=== PATIENT | female | born 1960 | race Caucasian/White ===

== ENCOUNTER → 2016-09-16 | Outpatient (CLI) | payer BC | END | disposition home or self-care (01) | LOC: LAB.O 17:22 | PROVIDERS: ATTEND Nurse Practitioner Family | DX: I10 Essential (primary) hypertension (principal) ==

== ENCOUNTER → 2016-09-17 | Outpatient (CLI) | payer BC | END | disposition home or self-care (01) | LOC: RESP 09:53 | PROVIDERS: ATTEND Nurse Practitioner Family | DX: I51.9 Heart disease, unspecified (principal) ==

== ENCOUNTER 2017-01-01 10:37 | Observation (INO) | payer BC ==
[2017-01-01] MEDS ORDERED: ASPIRIN TABLET 325 MG TAB ONE (10:50)
[2017-01-01] MEDS ORDERED: NITROGLYCERIN 0.4 MG 25 EA TAB SL ONE ×2 (10:50→10:51)
[2017-01-01] MEDS ORDERED: ASPIRIN TABLET 325 MG TAB PO ONE (10:51)
[2017-01-01] MEDS ORDERED: SODIUM CHLORIDE 0.9% (FLUSH) 10 ML SYG IV PRN ×2 (10:51→15:47)
--- NOTE | 2017-01-01 10:51 | ED.PDOC ---
History of Present Illness - General Chief Complaint: Chest Pain/FL Stated Complaint: chest pain Time Seen by Provider: 01/01/17 10:51 Source: patient Exam Limitations: no limitations - History of Present Illness Initial Comments: Tracey Anderson 56 y/o female stated that while walking down the kitchen hallway at work she had sudden onset of chest pain-stating as if somebody kicked her on the chest hten leaned on the wall had also been diaphoretic with tighness on her neck,jaw.and forehead lasting for about 10 minutes Timing/Duration: 1-3 hours Severity/Quality: moderate Location: central Chest Pain Radiation: jaw, neck, other - face Activities at Onset: activity Prior Chest Pain/Cardiac Workup: no prior cardiac workup, angina Improving Factors: rest Worsening Factors: nothing Nitro Today/Relief: no nitro taken today, provided by ED Aspirin Treatment Today: 325 mg x 1, provided by ED Associated Symptoms: shortness of breath - stated has occassional SOB due to asthma Allergies/Adverse Reactions: Allergies Penicillins Allergy (Verified 01/01/17 12:04) Home Medications: Ambulatory Orders Aspirin [Dario Low Dose] 81 mg PO DAILY 01/01/17 Review of Systems - Review of Systems Constitutional: States: no symptoms reported EENTM: States: no symptoms reported Respiratory: States: see HPI, short of breath Cardiology: States: see HPI Gastrointestinal/Abdominal: States: no symptoms reported Genitourinary: States: no symptoms reported Musculoskeletal: States: no symptoms reported Skin: States: no symptoms reported Neurological: States: no symptoms reported Past Medical History (General) - Patient Medical History Hx Hypertension: Yes - took medicine for one week discontinued due to side effects Surgical History: other - tubal ligation - Social History Hx Tobacco Use: No Hx Chewing Tobacco Use: No Hx Physical Abuse: No Hx Emotional Abuse: No Hx Suspected Abuse: No - Activities of Daily Living Patient Lives Alone: No - family Grooming Ability: Independent Eating (Feeding) Ability: Independent Toileting Ability: Independent Family Medical History - Family History Father Family History: Unknown - patient adopted Physical Exam - Physical Exam General Appearance: Alert, Comfortable, No apparent distress Eyes, Ears, Nose, Throat Exam: PERRL/EOMI, normal ENT inspection, TMs normal, pharynx normal Neck: non-tender, full range of motion, supple Respiratory: chest non-tender, lungs clear, normal breath sounds, no respiratory distress Cardiovascular/Chest: normal peripheral pulses, regular rate, rhythm, no edema, no murmur Peripheral Pulses: radial,right: 1+, radial,left: 1+ Gastrointestinal/Abdominal: normal bowel sounds, non tender, soft, no organomegaly Extremity: non-tender, normal inspection, no pedal edema, no calf tenderness Neurologic: alert, normal mood/affect, oriented x 3 Skin Exam: normal color, warm/dry Lymphatic: no adenopathy Progress - Progress Progress: 01/01/17 13:36 Vital Signs - 8 hr 01/01/17 01/01/17 01/01/17 10:58 11:13 11:28 Temperature Pulse Rate [ 85 74 66 Apical] Respiratory 22 22 22 Rate Blood Pressure 137/88 111/75 97/64 [Left Arm] O2 Sat by Pulse 97 97 98 Oximetry 01/01/17 01/01/17 01/01/17 11:48 11:57 12:08 Temperature 98.4 F Pulse Rate [ 69 86 81 Apical] Respiratory 20 22 22 Rate Blood Pressure 109/75 140/91 115/75 [Left Arm] O2 Sat by Pulse 97 100 97 Oximetry Laboratory Tests 01/01/17 01/01/17 01/01/17 11:01 11:01 12:00 WBC 6.8 RBC 4.09 L Hgb 10.6 L Hct 32.9 L MCV 80.5 L MCH 25.9 L MCHC 32.2 L RDW 17.0 H Plt Count 322 MPV 7.6 Absolute Neuts (auto) 5.00 Absolute Lymphs (auto) 1.20 Absolute Monos (auto) 0.50 Absolute Eos (auto) 0.10 Absolute Basos (auto) 0.00 Neutrophils % 72.9 Lymphocytes % 18.0 L Monocytes % 6.9 Eosinophils % 1.5 Basophils % 0.7 PT 13.7 H INR 1.210 PTT (SP) 32.1 D-Dimer, Quantitative < 230 Sodium 139 Potassium 3.8 Chloride 102 Carbon Dioxide 26 Anion Gap 14.8 BUN 12 Creatinine 0.80 BUN/Creatinine Ratio 15.0 Random Glucose 96 Serum Osmolality 277.2 Calcium 8.9 Magnesium 1.9 Total Bilirubin 0.5 Direct Bilirubin < 0.1 Indirect Bilirubin 0.4 AST 14 ALT 9 L Alkaline Phosphatase 74 Creatine Kinase 47 CK-MB (CK-2) 0.8 CK-MB (CK-2) % Not Reportable Troponin I < 0.02 < 0.02 B-Natriuretic Peptide 46.2 Serum Total Protein 6.8 Albumin 3.5 - EKG/XRAY/CT EKG: Sinus, nonspecific ST T wave Chg, Unchanged from - 09/17/2016 Comments: heart rate 76 occ.pac's XRAY: chest - no acute changes Departure - Departure Clinical Impression: Chest pain Qualifiers: Chest pain type: unspecified Qualified Code(s): R07.9 - Chest pain, unspecified Time of Disposition: 16:04 Disposition: Admit Patient Home Medications: Ambulatory Orders Aspirin [Dario Low Dose] 81 mg PO DAILY 01/01/17 Decision To Admit - Decistion To Admit Decision to Admit Reason: Admit from ER Decision to Admit Date: 01/01/17 - D/W Luis Alberto Villarreal-ANP/Hospitalist Decision to Admit Time: 16:04
--- NOTE | 2017-01-01 13:05 | RAD ---
EXAM: Frontal chest X-ray obtained. CLINICAL INDICATION: pain COMPARISON: None available at the time of dictation FINDINGS: There is no focal airspace consolidation, pleural effusion or pneumothorax. The cardiomediastinal silhouette and pulmonary vasculature appear within normal limits, given the technique. There are mild hypertrophic degenerative changes of the spine. Visualized osseous structures appear intact and are otherwise grossly unremarkable, given the nondedicated imaging. IMPRESSION: No radiographic evidence for acute cardiopulmonary disease process. Electronically signed by: Mp Reese MD 01/01/2017 1:04 PM CDT Workstation: [id number]
[2017-01-01] MEDS ORDERED: ACETAMINOPHEN 325 MG TAB PO PRN (15:47)
[2017-01-01] MEDS ORDERED: NITROGLYCERIN 0.4 MG 25 EA TAB SL PRN (15:47)
[2017-01-01] MEDS ORDERED: MORPHINE SULFATE INJ 10 MG/ML VIAL IV PRN (15:47)
[2017-01-01] MEDS ORDERED: NITROGLYCERIN 0.2 MG/HR PATCH TD ONE (15:51)
--- NOTE | 2017-01-01 15:58 | HP ---
SUPERVISING PHYSICIAN: Christian Rodriguez M.D. CHIEF COMPLAINT: Chest pain. HISTORY OF PRESENT ILLNESS: Ms. Anderson is a 56 year-old female patient that presented to the Emergency Department today after she started experiencing chest pains this morning. 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 She notes that she sees Lance Kennedy on a normal basis and for hypertension in the past , but was recently started on apparently Hydrochlorothiazide, Lisinopril, Wellbutrin and due to the side effects of the medication she stopped taking the medication. She notes that her blood pressure has been high with blood pressure this morning at home being 151/101. Initial workup in the Emergency Room showed that she had a white count of 6.8 and was mildly anemic with a hypochromic microcytic presentation with hemoglobin 10.6, hematocrit 32.9 and differential within normal limits. Her coagulation studies showed to be within normal limits as well as D-dimer was less than 230. Chemistries showed all to be within normal limits. Electrolytes, liver function as well as initial sets of cardiac enzymes which showed less than 0.02 on troponin with BNP of 46.6. Dr. Pierce, E. R. physician, requested that the patient be admitted to the hospital or be placed in observation for continuation of treatment with concerns for the chest pains and developing an acute coronary event secondary to ischemic changes. He noted that her initial EKG in the Emergency Department showed to be without any ST changes and was no changes compared to previous EKG in August of the same year. He did repeat cardiac enzymes at 3 hours which showed a troponin to be less than 0.02. In the Emergency Department, she was given an aspirin and a single Nitro that did resolve her pain. The patient now is without any pain and is going to be placed in Observation for continuation of treatment and further cardiac evaluation with repeat cardiac enzymes and close cardiac telemetry. PAST MEDICAL HISTORY: 1. Hypertension. 2. Chronic obstructive pulmonary disease. 3. Chronic tobacco abuse. PAST SURGICAL HISTORY: 1. Tubal ligation in 1980. HOME MEDICATIONS: Currently on no chronic medications. Has previously been this year on: 1. Wellbutrin for smoking cessation. 2. Hydrochlorothiazide/Lisinopril combination. 3. Xanax, but having stopped all medications secondary to side effects. ALLERGIES: PENICILLIN. FAMILY HISTORY: History of lung cancer in her mother as well as father had cirrhosis. SOCIAL HISTORY: The patient lives at [facility] at . 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 She is . She does note that she smokes approximately a pack and a half of cigarettes daily but has been up to 2 packs in the last year and has been smoking for well over 40 years. She denies any alcohol use but notes that she does like to smoke marijuana at occasional times. REVIEW OF SYSTEMS: CONSTITUTIONAL: Denies any fevers, chills, weight gain or weight loss. HEENT: Denies any headaches, vision changes, nasal congestion. RESPIRATORY: Does note that she has some shortness of breath at time and had some shortness of breath today associated with her chest pain as noted in the History of Present Illness. CARDIOVASCULAR: As noted in the History of Present Illness. GASTROINTESTINAL: No nausea, vomiting, bowel habit changes or constipation. GENITOURINARY: Denies any dysuria, hematuria or other urinary symptoms. NEUROLOGIC: Denies any syncopal episodes, near syncopal episodes, dizziness, headaches, vision changes or any other neurological symptoms. PHYSICAL EXAMINATION: VITAL SIGNS: Blood pressure initially in the Emergency Department on admission showed blood pressure 137/88 with pulse 85, satting 97% with respirations 22. Admission vital signs to the Medical/Surgical floor, blood pressure 127/81, heart rate 73, satting 98% on room air, respirations 20. Admission weight was 75.3 kg. GENERAL: On admission to the E. R. showed the patient to be without any discomfort or acute distress. She appears to be well nourished and well hydrated and is alert and oriented. HEENT: Tympanic membranes are clear bilaterally. Oropharynx is pink and moist without any lesions. NECK: Supple, non-tender with full range of motion. No noted jugular venous distention. CHEST: Lungs were clear to auscultation bilaterally with no obvious rhonchi, wheezing or rales. CARDIOVASCULAR: Regular rate and rhythm without appreciable murmurs, gallops, or rubs. ABDOMEN: Soft, non-tender. Positive bowel sounds. EXTREMITIES: No clubbing, cyanosis or edema. NEUROLOGIC: She is alert and oriented times three. Cranial nerves II-XII are grossly intact. Facial features were symmetrical. Extraocular movements are within normal limits. There was no notable nystagmus. LABORATORY: CBC showed white count 6.8, and had mild anemia with a 10.6 hemoglobin, hematocrit 32.9 with RBC indices indicating a microcytic hypochromic presentation. Platelet count was normal at 322,000. Differential showed to be without a shift. Coagulation studies showed just a slightly elevated PT of 13.7 with a normal INR, PTT was 32.1. D-dimer was within normal limits at less than 230. Chemistries showed to be totally within normal limits with potassium 3.8. Liver functions showed to be normal. Initial set of cardiac enzymes on admission showed troponin less than 0.02 and at 3 hours troponin remained within normal limits at less than 0.02. Urinalysis on admission to the Medical/Surgical floor showed 15 ketones, moderate amount of blood with small amount of bilirubin and tract leukocyte esterase with 5 to 10 RBCs on microscopic, but no WBCs or bacteria were noted. RADIOLOGY: Chest x-ray in the Emergency Department single view per radiology interpretation showed no radiographic evidence of acute cardiopulmonary disease process. ASSESSMENT: 1. Chest pain requiring admission to rule out acute ischemic event with the patient being pain free on admission with initial cardiac enzymes showing to be within normal limits and no acute changes noted on EKG. 2. Chronic tobacco abuse. 3. Chronic obstructive pulmonary disease in a chronic smoker without evidence of exacerbation. 4. Hypertension currently not being treated. 5. History of illicit drug use to include marijuana. PLAN: The patient was placed in Observation today for close telemetry monitoring and repeat cardiac enzymes at 6 hours and again in the morning. She will be started on a Nitro patch at 0.2 mg per hour. Will plan to also do a lipid panel in the morning. She will be on a cardiac diet. She was started on Lovenox 1 mg per kg until completely ruled out given her symptomology prior to admission and significant history for tobacco abuse and hypertension. Anticipate length of stay to be 1 to 2 days with possible discharge tomorrow. Again, should she show any changes in her EKG or elevation of her cardiac enzymes, will consult Cardiology and make plans for transfer for further evaluation. Until discharge, will continue to monitor and treat appropriately. Once discharged, the patient will need to closely followup with her primary care physician, Lance Kennedy, Nurse Practitioner, as well as be set up to see Cardiology for having a stress test to further rule out any other coronary etiology for current symptoms. #[id number] ANGELA
[2017-01-01] MEDS ORDERED: IV SET AND CAP CHANGE INJ INJ SCH (16:00)
[2017-01-01] MEDS: ENOXAPARIN SODIUM 80 MG/0.8 ML SYG SUBCU SCH (16:22)
[2017-01-01] MEDS: SODIUM CHLORIDE 0.9% (FLUSH) 10 ML SYG IV SCH (20:50)
[2017-01-02] MEDS ORDERED: REMOVE OLD PATCH TOP ONE (04:00)
[2017-01-02] MEDS: ENOXAPARIN SODIUM 80 MG/0.8 ML SYG SUBCU SCH (04:15)
[2017-01-02 06:14] VITALS: BP 111/72; TEMP 98.2; O2SAT 95
[2017-01-02] MEDS ORDERED: ASPIRIN TABLET 325 MG TAB ONE (07:14)
[2017-01-02] MEDS ORDERED: ASPIRIN TABLET 325 MG TAB PO SCH (09:00)
[2017-01-02] MEDS: SODIUM CHLORIDE 0.9% (FLUSH) 10 ML SYG IV SCH (09:38)
== END 2017-01-02 10:54 | disposition home or self-care (01) ==
LOC: ER 10:37 → MS 15:53
PROVIDERS: ADMIT Nurse Practitioner Family; ATTEND Nurse Practitioner Family
DX: R07.89 Other chest pain (principal); F17.210 Nicotine dependence, cigarettes, uncomplicated; J44.9 Chronic obstructive pulmonary disease, unspecified; I10 Essential (primary) hypertension; F12.21 Cannabis dependence, in remission; D50.9 Iron deficiency anemia, unspecified; Z98.51 Tubal ligation status; Z88.0 Allergy status to penicillin; Z80.1 Family history of malignant neoplasm of trachea, bronchus and lung; Z84.89 Family history of other specified conditions
CPT/HCPCS: 36415 ×6; 71010; 80048; 80053; 80061; 80076; 81001; 82550 ×4; 82553 ×4; 83880; 84484 ×5; 85025 ×2; 85379; 85610; 85730; 93005 ×3; 94760; 96372 ×2; 99284; 99406; G0378; J1650 ×2

== ENCOUNTER → 2017-02-11 | Outpatient (CLI) | payer BC | LOC: LAB.O 16:14 | PROVIDERS: ATTEND Nurse Practitioner Family | DX: R10.84 Generalized abdominal pain (principal); R19.7 Diarrhea, unspecified ==

== ENCOUNTER → 2017-02-18 | Outpatient (CLI) | payer BC ==
--- NOTE | 2017-02-19 08:42 | CT ---
PROCEDURE: Abdomen/Pelvis w/Contrast HISTORY: Abdominal pain Indication: Same as above Comparison: None . Technique: CT of the abdomen and pelvis was done with intravenous contrast. Images were obtained from the lung base to the level of the pubic symphysis in axial plane, followed by orthogonal sagittal and coronal reconstruction. Oral contrast was not given for the study. The patient was injected with radiographic contrast intravenously, without any documented immediate adverse reactions. This exam was performed according to our departmental dose-optimization program, which includes automated exposure control, adjustment of the mA and/or KV according to the patient's size and/or use of iterative reconstruction technique. FINDINGS: Images through the lung bases do not show any focal infiltrates or pleural effusions. Subcentimeter benign calcified granuloma seen in the medial right middle lobe of the lung. There is large bowel diverticulosis. There is segmental thickening of the wall of the proximal large bowel from the level of the ascending colon to the level of the hepatic flexure of the large bowel, with surrounding parenchymal stranding. This could be due to infectious or inflammatory segmental colitis. There is no large bowel obstruction The liver, gallbladder, pancreas, spleen and the bilateral adrenal glands appear unremarkable. The bilateral kidneys enhance with contrast in a normal fashion. The urinary bladder is unremarkable . The bilateral ureters and the bilateral periureteral soft tissues and fat planes are unremarkable. The small bowel appears unremarkable, without any evidence of small bowel obstruction or bowel wall thickening. The ileocecal junction appears unremarkable. The appendix is not visualized The splenic and portal veins are of normal caliber, without any filling defects. There is no pathological lymphadenopathy in the retroperitoneum or in the pelvic region. There is no evidence of free fluid or free air in the abdomen or the pelvic region. There is no clinically significant abdominal aortic aneurysm. There is no clinically significant inguinal or ventral hernia. An anteverted uterus is noted The visualized lumbar spine is unremarkable . The paravertebral soft tissues are unremarkable. The remainder of the pelvic structures are unremarkable. IMPRESSION: There is large bowel diverticulosis. There is segmental thickening of the wall of the proximal large bowel from the level of the ascending colon to the level of the hepatic flexure of the large bowel, with surrounding parenchymal stranding. This could be due to infectious or inflammatory segmental colitis. There is no large bowel obstruction Electronically signed by: Soren Taylor MD 02/19/2017 8:41 AM CDT Workstation: [id number]
== END | disposition home or self-care (01) ==
LOC: CT 09:36
PROVIDERS: ATTEND Nurse Practitioner Family
DX: R10.84 Generalized abdominal pain (principal)

== ENCOUNTER 2017-03-11 14:19 | Outpatient (CLI) | payer BC ==
[2017-03-11] MEDS ORDERED: SODIUM CHLORIDE 0.9% 1000ML 1,000 ML IVS ONE (14:42)
[2017-03-11 15:34] VITALS: BP 117/78; TEMP 98.1; O2SAT 99
== END 2017-03-11 15:34 | disposition home or self-care (01) ==
LOC: TXRM 14:19
PROVIDERS: ATTEND Nurse Practitioner Family
DX: E86.0 Dehydration (principal)
CPT/HCPCS: 36415; 80053; 85025; 96360; G0463

== ENCOUNTER 2017-03-20 14:30 | Emergency (ER) | payer BC ==
[2017-03-20 14:47] VITALS: TEMP 97.1
[2017-03-20] MEDS ORDERED: SUCRALFATE 1 GM/10 ML 1 GM UD PO ONE (15:00)
[2017-03-20] MEDS ORDERED: SODIUM CHLORIDE 0.9% 1000ML 1,000 ML IVS ONE (15:00)
[2017-03-20] MEDS ORDERED: ALUMINUM & MAGNESIUM HYDROXIDE 30 ML UD PO ONE (15:00)
[2017-03-20] MEDS ORDERED: ONDANSETRON ODT 8 MG TAB SL ONE (15:00)
--- NOTE | 2017-03-20 15:27 | RAD ---
PROCEDURE: Abdomen Series Clinical History: nv/d Indication: Same as above Comparison: CT of the abdomen and pelvis done on 02/18/2017 Technique: Two views of the abdomen and pelvis and 1.0 view of the chest were done. Findings: There is no gross evidence of free air in the abdomen or the pelvis . The small and large bowel gas pattern does not show any evidence of obstruction, ileus or bowel wall thickening. There is no visualization of radiopaque calculi in the outline of the urinary tract. There is no significant constipation There are no discrete airspace infiltrates, pneumothoraces or pleural effusions Cardiomediastinal silhouette is unremarkable. Impression: There are no acute or significant findings in the chest, abdomen and pelvis Location of Interpretation: [id number] Electronically signed by: Soren Taylor MD 03/20/2017 3:26 PM CDT Workstation: [id number]
[2017-03-20] MEDS ORDERED: PANTOPRAZOLE INJECTION 40 MG in SODIUM CHLORIDE 0.9% 100ML 100 ML IVPB ONE (15:43)
[2017-03-20] MEDS ORDERED: predniSONE 20 MG TAB PO ONE (15:44)
[2017-03-20] MEDS ORDERED: PANTOPRAZOLE SODIUM IV 40 MG VIAL ONE (15:45)
[2017-03-20] MEDS ORDERED: FLUCONAZOLE 100 MG TAB PO ONE (15:45)
[2017-03-20] MEDS ORDERED: SODIUM CHLORIDE 0.9% 100ML 100 ML IVPB ONE (15:46)
[2017-03-20 16:21] VITALS: O2SAT 98
[2017-03-20] MEDS ORDERED: KETOROLAC TROMETHAMINE INJ 30 MG/ML VIAL IM ONE (16:58)
[2017-03-20] MEDS ORDERED: HYDROcodone 7.5MG/APAP 325MG 1 EA TAB PO ONE (16:59)
[2017-03-20] MEDS ORDERED: PROMETHAZINE HCL 25 MG TAB PO ONE (16:59)
[2017-03-20] MEDS ORDERED: AZITHROMYCIN 250 MG TAB PO ONE (17:00)
--- NOTE | 2017-03-20 17:02 | ED.PDOC ---
History of Present Illness - General Chief Complaint: Abdominal Pain Stated Complaint: abdominal pain,diarrhea Time Seen by Provider: 03/20/17 14:46 Source: patient Exam Limitations: no limitations - History of Present Illness Initial Comments: the patient is a 56-year-old female presenting to the emergency room secondary to persistent abdominal pain. The patient reports that she's had abdominal pain for the last 3-4 months. She actually had a CT scan done last month showing an descending colitis. She had been on metronidazole and Flagyl for a period of a couple of weeks after that. She reports having frequent diarrhea as well as intermittent nausea and vomiting. She has Phenergan for as needed use. She does not have any stomach medications otherwise. She tested negative for C. difficile several weeks ago. No blood in the stools. No blood in the vomitus. Timing/Duration: unsure Severity: moderate Improving Factors: nothing Worsening Factors: nothing Associated Symptoms: malaise, nausea/vomiting Allergies/Adverse Reactions: Allergies Penicillins Allergy (Verified 01/01/17 12:04) Home Medications: Ambulatory Orders Metoprolol Tartrate 25 mg PO BID #30 tab 01/02/17 Ferrous Sulfate [Feosol Tab] 325 mg PO TID 03/20/17 Omeprazole 20 mg PO DAILY 03/20/17 Promethazine HCl 25 mg PO PRN 03/20/17 Review of Systems - Review of Systems Constitutional: States: malaise EENTM: States: no symptoms reported Respiratory: States: no symptoms reported Cardiology: States: no symptoms reported Gastrointestinal/Abdominal: States: abdominal pain, diarrhea, nausea, vomiting Genitourinary: States: no symptoms reported Musculoskeletal: States: no symptoms reported Skin: States: no symptoms reported Neurological: States: no symptoms reported Endocrine: States: no symptoms reported All other Systems: No Change from Baseline Past Medical History (General) - Patient Medical History Hx Seizures: No Hx Stroke: No Hx Asthma: Yes Hx of COPD: Yes Hx Congestive Heart Failure: No Hx Pacemaker: No Hx Hypertension: Yes - took medicine for one week discontinued due to side effects Hx Diabetes: No Hx MRSA: No - Vaccination History Hx Influenza Vaccination: No Hx Pneumococcal Vaccination: No - Social History Hx Tobacco Use: Yes Hx Chewing Tobacco Use: No Hx Alcohol Use: No Hx Substance Use: Yes - uses marijau Hx Physical Abuse: No Hx Emotional Abuse: No Hx Suspected Abuse: No Family Medical History - Family History Father Family History: Unknown Living Status: Physical Exam - Physical Exam General Appearance: Alert, Comfortable, No apparent distress Eye Exam: bilateral normal Ears, Nose, Throat: hearing grossly normal, normal ENT inspection, normal pharynx Neck: full range of motion, supple, normal inspection Respiratory: chest non-tender, lungs clear, normal breath sounds, no respiratory distress, no accessory muscle use Cardiovascular/Chest: normal peripheral pulses, regular rate, rhythm, no edema Peripheral Pulses: radial,right: 2+, radial,left: 2+, dorsalis pedis,right: 2+, dorsalis pedis,left: 2+ Gastrointestinal/Abdominal: soft, other - he patient has mild to moderate diffuse right sided discomfort palpation. No definite rebound or peritoneal signs. No definite palpable mass. 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 The patient had a diagnosis of an ascending colitis from a month ago on a CT scan. I'm going to change her antibiotic to azithromycin 500 mg daily for 5 days with the first dose being given now. Additionally I'm going to place her on prednisone 20 mg orally daily for 5 days with the first dose given now. I have additionally cover the patient for any transient gastritis with Carafate and Pepcid. She can additionally take Maalox as needed. She needs to keep herself well hydrated. She needs to follow up with her primary care doctor tomorrow or the next day and get set up for upper and lower endoscopy. The patient will also be written for Zofran for as needed use for nausea. ER warnings were given. The patient has received a liter of IV fluids here this evening. I also recommend that for at least the next 2-3 weeks the patient maintain a strict lactose and gluten-free diet. 03/20/17 17:06 - Results/Orders Results/Orders: Laboratory Tests 03/20/17 03/20/17 03/20/17 15:10 15:12 15:12 WBC 6.3 RBC 4.24 Hgb 10.9 L Hct 33.4 L MCV 78.8 L MCH 25.7 L MCHC 32.5 L RDW 26.9 H Plt Count 351 MPV 7.4 Absolute Neuts (auto) 4.20 Absolute Lymphs (auto) 1.40 Absolute Monos (auto) 0.40 Absolute Eos (auto) 0.20 Absolute Basos (auto) 0.00 Neutrophils % 67.2 Lymphocytes % 22.7 Monocytes % 6.6 Eosinophils % 2.8 Basophils % 0.7 Sodium 137 Potassium 3.5 L Chloride 102 Carbon Dioxide 25 Anion Gap 13.5 BUN 6 L Creatinine 0.78 BUN/Creatinine Ratio 7.7 L Random Glucose 88 Serum Osmolality 270.9 L Lactic Acid Calcium 9.1 Magnesium 1.9 Total Bilirubin 0.7 AST 15 ALT < 8 L Alkaline Phosphatase 61 Creatine Kinase 36 CK-MB (CK-2) 1.1 CK-MB (CK-2) % Not Reportable Troponin I < 0.02 B-Natriuretic Peptide 39.5 Serum Total Protein 7.0 Albumin 3.7 Globulin 3.3 Albumin/Globulin Ratio 1.1 Amylase 33 Lipase 20 L TSH 3.29 Urine Color Yellow Urine Appearance Clear Urine pH 5.5 Ur Specific [place] 1.010 Urine Protein Negative Urine Glucose (UA) Negative Urine Ketones 15 H Urine Blood Small H Urine Nitrite Negative Urine Bilirubin Negative Urine Urobilinogen 0.2 Ur Leukocyte Esterase Negative Urine RBC 3-5 H Urine WBC 0 Ur Epithelial Cells 0-1 Urine Bacteria 0 03/20/17 15:12 WBC RBC Hgb Hct MCV MCH MCHC RDW Plt Count MPV Absolute Neuts (auto) Absolute Lymphs (auto) Absolute Monos (auto) Absolute Eos (auto) Absolute Basos (auto) Neutrophils % Lymphocytes % Monocytes % Eosinophils % Basophils % Sodium Potassium Chloride Carbon Dioxide Anion Gap BUN Creatinine BUN/Creatinine Ratio Random Glucose Serum Osmolality Lactic Acid 1.1 Calcium Magnesium Total Bilirubin AST ALT Alkaline Phosphatase Creatine Kinase CK-MB (CK-2) CK-MB (CK-2) % Troponin I B-Natriuretic Peptide Serum Total Protein Albumin Globulin Albumin/Globulin Ratio Amylase Lipase TSH Urine Color Urine Appearance Urine pH Ur Specific [place] Urine Protein Urine Glucose (UA) Urine Ketones Urine Blood Urine Nitrite Urine Bilirubin Urine Urobilinogen Ur Leukocyte Esterase Urine RBC Urine WBC Ur Epithelial Cells Urine Bacteria acute abdominal series shows no evidence of any perforation, bowel obstruction or significant constipation. No other acute pathology noted. c. difficiletoxin is negative. Departure - Departure Clinical Impression: Colitis Gastritis Qualifiers: Gastritis type: unspecified gastritis Chronicity: acute Gastritis bleeding: without bleeding Qualified Code(s): K29.00 - Acute gastritis without bleeding Disposition: Discharge to Home or Self Care Departure Forms: ED Discharge - Pt. Copy, Patient Portal Self Enrollment Referrals: DANIA ABARCA IV, SANDST[employer] INSPECTOR REPAIRER [Primary Care Provider] - 1-2 Weeks Home Medications: Ambulatory Orders Metoprolol Tartrate 25 mg PO BID #30 tab 01/02/17 Ferrous Sulfate [Feosol Tab] 325 mg PO TID 03/20/17 Omeprazole 20 mg PO DAILY 03/20/17 Promethazine HCl 25 mg PO PRN 03/20/17 Additional Instructions: the patient is a 56-year-old female presenting to the emergency room secondary persistent abdominal pain with intermittent nausea and vomiting and diarrhea. The patient had a diagnosis of an ascending colitis from a month ago on a CT scan. I'm going to change her antibiotic to azithromycin 500 mg daily for 5 days with the first dose being given now. Additionally I'm going to place her on prednisone 20 mg orally daily for 5 days with the first dose given now. I have additionally cover the patient for any transient gastritis with Carafate and Pepcid. She can additionally take Maalox as needed. She needs to keep herself well hydrated. She needs to follow up with her primary care doctor tomorrow or the next day and get set up for upper and lower endoscopy. The patient will also be written for Zofran for as needed use for nausea. ER warnings were given. The patient has received a liter of IV fluids here this evening. I also recommend that for at least the next 2-3 weeks the patient maintain a strict lactose and gluten-free diet. prescriptions are handwritten due to computer malfunction.
[2017-03-20 17:09] VITALS: BP 149/82
== END 2017-03-20 17:24 | disposition home or self-care (01) ==
LOC: ER 14:30
DX: K29.00 Acute gastritis without bleeding (principal); I10 Essential (primary) hypertension; Z87.891 Personal history of nicotine dependence; Z88.0 Allergy status to penicillin
CPT/HCPCS: 36415; 74020; 80053; 81001; 82150; 82550; 82553; 83605; 83690; 83735; 83880; 84443; 84484; 85025; 87324; 87449; J1885; J7030; J7050; J7512; Q0144; Q0169

== ENCOUNTER → 2017-03-25 | Outpatient (CLI) | payer BC ==
--- NOTE | 2017-03-28 09:06 | CT ---
EXAM DESCRIPTION: Abdomen/Pelvis w/Contrast CLINICAL HISTORY: 56 years Female, GENERALIZED ABD PAIN COMPARISON: 18 February 2017 TECHNIQUE: Transaxial images were obtained with intravenous contrast medium without oral contrast media. Sagittal and coronal reconstruction was performed.This exam was performed according to our departmental dose-optimization program, which includes automated exposure control, adjustment of the mA and/or kV according to patient size and/or use of iterative reconstruction technique. FINDINGS: A calcified renal hilum is observed in the right middle lobe. The liver and spleen are normal in appearance. No biliary ductal dilatation is observed. The gallbladder is normal in appearance. No adrenal masses are detected. The pancreas is normal in appearance. Persistent inflammatory changes are seen about the descending colon there is moderate distention of the cecum. A small amount of ascites is observed in the pelvis. There is some mild colon thickening distal to the region of cecal and a sending colon distention. The possibility of a colitis or neoplasm should be considered. No evidence of distal metastatic disease is detected. Calcific atherosclerotic changes observed in the abdominal aorta without evidence of aneurysmal dilatation. A small amount of ascites is observed in the pelvis. No inguinal region abnormality is detected. No bone abnormality is seen. IMPRESSION: 1. Distention of the cecum and ascending colon are observed and may be the result of a colitis or David's type syndrome. The possibility of neoplasm of the colon could also be considered as there is some thickening of the colon distal to the region of distention. Further evaluation with colonoscopy should be considered in this individual. 2. Small amount of ascites is observed in the pelvis. Electronically signed by: Yandel Harper MD 03/28/2017 9:04 AM CDT
== END | disposition home or self-care (01) ==
LOC: LAB.O 09:27
PROVIDERS: ATTEND Nurse Practitioner Family
DX: R10.84 Generalized abdominal pain (principal)

== ENCOUNTER → 2017-03-28 | Outpatient (CLI) | payer BC ==
--- NOTE | 2017-03-29 09:11 | RAD ---
EXAM DESCRIPTION: Abdomen Flat Upright CLINICAL HISTORY: 56 years Female, general abdominal pain COMPARISON: March 20, 2017 IMPRESSION: Bowel gas pattern is nonspecific. Large volume of fecal material is present within the rectum, compatible with constipation/obstipation. Please correlate clinically. No evidence for pneumatosis intestinalis, portal venous gas, or free air under the diaphragm. No organomegaly. No suspicious intra-abdominal calcifications. Facet arthropathy of L4-L5 and L5-S1 bilaterally. No acute osseous abnormality. Electronically signed by: Yandel Angel MD 03/29/2017 9:09 AM CDT
== END | disposition home or self-care (01) ==
LOC: LAB.O 10:00
PROVIDERS: ATTEND Nurse Practitioner Family
DX: R10.84 Generalized abdominal pain (principal)

== ENCOUNTER 2017-04-08 19:18 | Emergency (ER) | payer BC ==
[2017-04-08 19:50] VITALS: O2SAT 96
--- NOTE | 2017-04-08 19:52 | ED.PDOC ---
History of Present Illness - General Chief Complaint: Wound Recheck Stated Complaint: Incisional drainage Time Seen by Provider: 04/08/17 19:48 Source: patient Exam Limitations: no limitations - History of Present Illness Initial Comments: Tracey Anderson 56 y/o female stated that she had colon surgery for stage 3 colon cancer 03/31/2017 and nicolle came out yesterday and steri strips was placedd but today noticed some red colored drainage from the surgical wound closed to umbilicus.No fever no abdominal pain,no chills Timing/Duration: this afternoon Severity: moderate Location: torso Improving Factors: nothing Worsening Factors: nothing Associated Symptoms: denies symptoms Allergies/Adverse Reactions: Allergies Morphine Allergy (Verified 04/08/17 19:53) Penicillins Allergy (Verified 04/08/17 19:53) Home Medications: Ambulatory Orders Metoprolol Tartrate 25 mg PO BID #30 tab 01/02/17 Ferrous Sulfate [Feosol Tab] 325 mg PO TID 03/20/17 Omeprazole 20 mg PO DAILY 03/20/17 Promethazine HCl 25 mg PO PRN 03/20/17 Review of Systems - Review of Systems All other Systems: Reviewed and Negative, No Change from Baseline Past Medical History (General) - Patient Medical History Hx Seizures: No Hx Stroke: No Hx Asthma: Yes Hx of COPD: Yes Hx Congestive Heart Failure: No Hx Pacemaker: No Hx Hypertension: Yes - took medicine for one week discontinued due to side effects Hx Diabetes: No Hx MRSA: No Surgical History: cancer surgery - colon cancer - Vaccination History Hx Influenza Vaccination: No Hx Pneumococcal Vaccination: No - Social History Hx Tobacco Use: Yes Hx Chewing Tobacco Use: No Hx Alcohol Use: No Hx Substance Use: Yes - uses marijau Hx Physical Abuse: No Hx Emotional Abuse: No Hx Suspected Abuse: No - Activities of Daily Living Patient Lives Alone: No Family Medical History - Family History Father Family History: Unknown Living Status: Hx Family;Other: ADOPTED Physical Exam - Physical Exam General Appearance: Alert, Comfortable, No apparent distress Eyes, Ears, Nose, Throat Exam: normal ENT inspection, pharynx normal Neck: full range of motion, supple Cardiovascular/Chest: normal peripheral pulses, regular rate, rhythm, no murmur Respiratory: chest non-tender, lungs clear, normal breath sounds Gastrointestinal/Abdominal: normal bowel sounds, non tender, soft, other - wellhealed surgical incision with localized area of serous drarinage supraumbilical area Back Exam: normal inspection, no CVA tenderness Neurologic: alert, oriented x 3 Skin Problem Location: torso Skin Character: other - draining seroma no surrounding erythema,no tenderness along surgical abdominal incision Progress - Progress Progress: 04/08/17 19:56 Last Vital Signs Temp 99.2 F 04/08/17 19:35 Pulse 82 04/08/17 19:35 Resp 20 04/08/17 19:35 BP 152/65 04/08/17 19:35 Pulse Ox 96 04/08/17 19:35 - Results/Orders Results/Orders: wound cleanse and dressing applied Departure - Departure Clinical Impression: Seroma, History of colon cancer, stage III, Status post colon resection Time of Disposition: 19:58 Disposition: Discharge to Home or Self Care Condition: Good Departure Forms: ED Discharge - Pt. Copy, Patient Portal Self Enrollment Instructions: DI for Wound Infection Referrals: DANIA ABARCA IV, NCA CERTIFIED CONCIERGE [Primary Care Provider] - 1-2 Weeks Home Medications: Ambulatory Orders Metoprolol Tartrate 25 mg PO BID #30 tab 01/02/17 Ferrous Sulfate [Feosol Tab] 325 mg PO TID 03/20/17 Omeprazole 20 mg PO DAILY 03/20/17 Promethazine HCl 25 mg PO PRN 03/20/17 Additional Instructions: RETURN TO EMERGENCY ROOM IF SYMPTOMs WORSENS
[2017-04-08 20:17] VITALS: BP 105/69; TEMP 98.4
== END 2017-04-08 20:10 | disposition home or self-care (01) ==
LOC: ER 19:18
DX: K91.872 Postprocedural seroma of a digestive system organ or structure following a digestive system procedure (principal); C18.9 Malignant neoplasm of colon, unspecified; J44.9 Chronic obstructive pulmonary disease, unspecified; I10 Essential (primary) hypertension; Z87.891 Personal history of nicotine dependence; Z88.6 Allergy status to analgesic agent; Z88.0 Allergy status to penicillin; Z79.899 Other long term (current) drug therapy

== ENCOUNTER 2017-12-08 14:31 | Emergency (ER) | payer BC ==
[2017-12-08] MEDS ORDERED: SODIUM CHLORIDE 0.9% 1000ML 1,000 ML ONE (16:21)
[2017-12-08] MEDS ORDERED: SODIUM CHLORIDE 0.9% 1000ML 1,000 ML IVS ONE ×2 (16:22→16:28)
--- NOTE | 2017-12-08 17:04 | ED.PDOC ---
History of Present Illness - General Chief Complaint: GI Problem Stated Complaint: Bleeding episodes after colonoscopy Time Seen by Provider: 12/08/17 15:00 Information Source: patient, RN notes reviewed, Vital Signs reviewed, family Exam Limitations: no limitations - History of Present Illness Initial Comments: She had a colonoscopy with a polypectomy earlier today. She went home & passed more than a tablespoon of bright red blood so she called the record clerk back as instructed. She was sent here but had no specific complaints. She felt a little fatigued & had mild abdominal cramping she attributed to gas from the procedure. She has a remote hx of colon CA & resection of 90% of the colon. She has chronic diarrhea. Abdominal Pain Onset Location: generalized abdomen Pain Radiation: no radiation Quality: mild, cramping Timing/Duration: 4-6 hours Improving Factors: nothing Worsening Factors: nothing Associated Symptoms: fatigue, weakness - some nausea Review of Systems - Review of Systems Constitutional: States: see HPI EENTM: States: no symptoms reported Respiratory: States: no symptoms reported Cardiology: States: no symptoms reported Gastrointestinal/Abdominal: States: see HPI Genitourinary: States: no symptoms reported Musculoskeletal: States: no symptoms reported Skin: States: no symptoms reported Neurological: States: no symptoms reported Endocrine: States: no symptoms reported Hematologic/Lymphatic: States: see HPI Past Medical History (General) - Patient Medical History Hx Seizures: No Hx Stroke: No Hx Dementia: No Hx Asthma: Yes Hx of COPD: Yes Hx Cardiac Disorders: No Hx Congestive Heart Failure: No Hx Pacemaker: No Hx Hypertension: Yes Hx Diabetes: No Hx Gastroesophageal Reflux: Yes Hx Renal Disease: No Hx Cancer: Yes - Colon CA Hx of HIV: No Hx Hepatitis C: No Hx MRSA: Yes - Abdomen 2017 MRSA Source:: Wound - Vaccination History Hx Tetanus, Diphtheria Vaccination: No Hx Influenza Vaccination: Yes - 2017 Hx Pneumococcal Vaccination: Yes - 2017 - Social History Hx Tobacco Use: Yes Hx Chewing Tobacco Use: No Hx Alcohol Use: No Hx Substance Use: Yes - uses marijau Hx Substance Use Treatment: No Hx Depression: No Hx Physical Abuse: No Hx Emotional Abuse: No Hx Suspected Abuse: No Family Medical History - Family History Father Family History: Unknown Living Status: Hx Family;Other: ADOPTED Mother Family History: Unknown Physical Exam - Physical Exam General Appearance: Alert, Comfortable, No apparent distress, Well Developed, Well Groomed, Well Nourished Eyes, Ears, Nose, Throat Exam: normal ENT inspection Neck: supple, normal inspection Respiratory: no respiratory distress, no accessory muscle use, respiratory distress Cardiovascular/Chest: normal peripheral pulses, regular rate, rhythm, no JVD Peripheral Pulses: 2+ Gastrointestinal/Abdominal: soft, no organomegaly, no pulsatile mass, tenderness - mild diffuse tenderness Rectal Exam: deferred Back Exam: normal inspection Extremity: normal range of motion, no pedal edema Neurologic: alert, normal mood/affect, oriented x 3 Skin Exam: normal color, warm/dry Special Observations: No evidence of discomfort Progress - Progress Progress: 12/08/17 16:59 Profound tilt before IVF - 55/36; 132. Weak & dizzy with standing but the dizziness on standing is not new for her. 94/71; 93 after first liter of fluid. 122/83; 92 after 2nd liter No external bleeding here. She says she feels a little weak but otherwise fine. I have spoken with Dr. Murillo who rec. observation even though he doesn't think the hypotension is related to today's procedure. I have spoken with Dr. Santo & I will send her now. I believe she is stable for transfer but I do not feel that holding her here for a CT & other testing & treatments would be the safest thing to do. - Results/Orders Results/Orders: Hgb 16 - EKG/XRAY/CT EKG: Sinus - HR 89; RAD; anterior Twi Departure - Departure Clinical Impression: Hypotension Qualifiers: Hypotension type: unspecified hypotension type Qualified Code(s): I95.9 - Hypotension, unspecified Time of Disposition: 16:58 Disposition: Transfer to Hospital Condition: Fair Departure Forms: ED Discharge - Pt. Copy, Patient Portal Self Enrollment Referrals: DANIA ABARCA IV, GLOBAL CTO [Primary Care Provider] - 1-2 Weeks Home Medications: Ambulatory Orders Metoprolol Tartrate 25 mg PO BID #30 tab 01/02/17 Promethazine HCl 25 mg PO PRN 03/20/17 Cyanocobalamin Inj [Vitamin B-12 Inj] 1,000 mcg IM .[id number] 12/08/17 Lisinopril 10 mg PO DAILY 12/08/17 Ranitidine HCl 150 mg PO DAILY 12/08/17 predniSONE 7.5 mg PO DAILY 12/08/17 Critical Care Note - Critical Care Note Total Time (mins): 45 Comments: IVF, monitoring, consultation x 2. Differential includes GI bleed, volume depletion.
[2017-12-08 17:08] VITALS: TEMP 98.2
[2017-12-08 18:39] VITALS: BP 100/67; O2SAT 97
== END 2017-12-08 17:35 | disposition short-term general hospital (02) ==
LOC: ER 14:31
DX: I95.9 Hypotension, unspecified (principal); K91.840 Postprocedural hemorrhage of a digestive system organ or structure following a digestive system procedure; Z85.038 Personal history of other malignant neoplasm of large intestine; R19.7 Diarrhea, unspecified; J44.9 Chronic obstructive pulmonary disease, unspecified; J45.909 Unspecified asthma, uncomplicated; I10 Essential (primary) hypertension; K21.9 Gastro-esophageal reflux disease without esophagitis; R42 Dizziness and giddiness
CPT/HCPCS: 36415; 80048; 85014; 85018; 85025; 93005; J7030

== ENCOUNTER → 2019-05-17 | Outpatient (CLI) | payer BC ==
--- NOTE | 2019-05-17 20:22 | MRI ---
EXAM DESCRIPTION: Thoracic Spine w/o Contrast: Magnetic Resonance Imaging. CLINICAL HISTORY: DORSALGIA COMPARISON: MRI scan cervical spine without contrast on the same visit TECHNIQUE: Multiplanar, multiple standard sequences, non contrast MRI, thoracic spine. Technically difficult study due to patient motion on some images and sequences. FINDINGS: Posterior protrusion of the T7-T8 disc 4 mm x 3 mm impressing on the ventral right cord and possibly the right T7 nerve. Mild to moderate canal narrowing but foramina are patent. Mild to moderate anterior endplate reactive changes. T5-T6 disc space narrowing with disc desiccation. Minimal concavity in the superior T6 endplate into its the disc is expanding. No marrow edema in the superior T6 endplate. No posterior bulging or canal or foraminal stenosis. Anterior mild wedging of the T4 vertebral body with anterior cortex 8 mm high and anterior cortex of T3 is 14 mm. No marrow edema in the T4 vertebral body. No significant bulging of the T3-T4 disc. Canal and foramina are patent. Concavities in the in both endplates or 1 endplate of the disc spaces from T8-T9 to T12-L1. No significant disc bulging. No canal or foraminal stenosis. Remaining discs with normal signal. Disc spaces are preserved. Canal and foramina are patent. No scoliosis.Facet joints are unremarkable. Conus terminates at L1. Cord with normal signal, no compression. Paravertebral soft tissues are unremarkable. Normal marrow signal in the remaining vertebral bodies and the posterior elements. Marrow edema of the vertebra at the superior margin of the study and inferior margin of the study is difficult to evaluate due to artifact on STIR sequences with hyperintense signal similar to marrow edema. Vertebral bodies are not compressed at any level. IMPRESSION: 1. Right posterior T7-T8 disc herniation impressing on the right ventral cord and possible compromise of the right T7 nerve. No canal or foraminal stenosis. 2. Other discs with desiccation. No canal or foraminal stenosis. Endplate changes and vertebral body height reductions but not associated with marrow edema. Electronically signed by: Jose Luis Silva MD 05/17/2019 8:20 PM REAL ESTATE RECRUITER
--- NOTE | 2019-05-17 20:41 | MRI ---
EXAM DESCRIPTION: Cervical Spine: MRI. CLINICAL HISTORY: 58 years Female CERVICALGIA COMPARISON: MRI scan thoracic spine without contrast on this visit. TECHNIQUE: Multiplanar, high-field MRI, multiple sequences, non-contrast Cervical spine. FINDINGS: C4-C5: Disc desiccation and minimal disc space loss. Large posterior midline protrusion measuring 4.5 mm and 6.5 mm transverse, impressing on the ventral cord and extruding superiorly 8 mm, posterior to the C4 vertebral body and abutting the epidural plexus. Moderate canal narrowing but bilateral neural foramina are patent. Facet joints are unremarkable. C5-C6: Disc desiccation and minimal disc space loss. Posterior broad-based disc bulge with kyphosis. The disc is abutting the ventral cord and mild canal narrowing. Bilateral uncinate spurs with moderate right neural foraminal narrowing and mild left neural foraminal narrowing. C6-C7: Minimal disc desiccation and bulging. Mild canal narrowing. Mild bilateral neural foraminal narrowing. Minimal midline anterior endplate reactive changes. Bilateral facets are unremarkable. C7-T1: Normal signal in the disc with disc space preserved. Tiny posterior bulge. Bilateral foramina are patent. Facets unremarkable. Mild canal narrowing. Normal signal in the C2-C3 disc and C3-C4 disc with no bulging. Disc spaces preserved. Canal and neural foramina are patent. Facet joints are unremarkable. Spinal alignment process is noted above with normal lordosis below that level. No cord compression or cord edema. Atlantoaxial joint negative. Base of the cerebellar tonsils is slightly above the foramen magnum. Paravertebral soft tissues negative.. Vertebral bodies are not compressed at any level. Otherwise normal marrow signal in the remaining vertebral bodies and the posterior elements. IMPRESSION: 1. Posterior protrusion of the C4-C5 disc with superior extrusion and moderate canal narrowing. Possible compromise of the bilateral C5 nerves. No neural foraminal stenosis. 2. C5-C6 disc desiccation and minimal disc space loss with posterior broad-based disc bulge and kyphosis. Disc is abutting the cord. Mild canal narrowing. Moderate bilateral neural foraminal narrowing more on the right. 3. C6-C7 disc desiccation and minimal midline bulging. No canal or neural foraminal stenosis. Electronically signed by: Jose Luis Silva MD 05/17/2019 8:39 PM [facility]
== END ==
LOC: MRI 08:00
PROVIDERS: ATTEND Nurse Practitioner Family
DX: M51.24 Other intervertebral disc displacement, thoracic region (principal); M50.322 Other cervical disc degeneration at C5-C6 level; M50.323 Other cervical disc degeneration at C6-C7 level; M40.202 Unspecified kyphosis, cervical region; M48.02 Spinal stenosis, cervical region; M51.34 Other intervertebral disc degeneration, thoracic region

== ENCOUNTER → 2019-11-01 | Outpatient (CLI) | payer OTHER ==
--- NOTE | 2019-11-01 16:37 | MRI ---
EXAM DESCRIPTION: MRA Head and/or Neck CLINICAL HISTORY: VERTEBRO-BASILAR SYNDROME-NECK COMPARISON: MRI scan cervical spine April 2019. TECHNIQUE: 2D [id number] and 3-D [id number] 3 mm thin-section axial acquisitions from the lower neck through the base of the skull. Non contrast. MIP reconstructions. FINDINGS: Minimal narrowing of the customary origin of the right common carotid artery. Left common carotid artery present to originate from the aortic arch with minimal narrowing compared to the right common carotid. Approximately 25% stenosis of the origin of the left ICA from posterior plaque. Approximately 50% stenosis of the origin of the right ICA from posterior plaque. Bilateral cervical segments of the ICAs show no significant narrowing or stenosis. No mass effect, aneurysm, or vasculitis. Costovertebral origins of the bilateral vertebral arteries. No significant narrowing of the origins. In the intervertebral foramina, the left vertebral is slightly larger in caliber. No mass effect. Left vertebral artery slightly larger at the skull base. Only the origin of the left PICA vessel is noted. No mass effect, significant narrowing/stenosis, aneurysm, or vasculitis. Bilateral petrous segments of the ICAs are negative. Bilateral transverse sinus segments are unremarkable. Right posterior communicating artery through the posterior circulation just proximal to the Bifurcation of the supraclinoid segment of the right ICA. The bifurcation is unremarkable in so are the first second and third order bifurcations of the MEDHAT and MCA. No mass effect avasculitis no significant stenosis or narrowing or aneurysm. The supraclinoid left ICA bifurcates into the left posterior communicating artery and the left MCA. First second and third order branches of the MCA are negative. There is no A1 segment from the left MEDHAT. The A2 segment of the left MEDHAT continues from the anterior communicating artery. First second and third branches from the left MEDHAT are negative. No mass effect, no vasculitis, and no aneurysm. Right AICA branch from the proximal basilar artery. Bilateral superior cerebellar artery branches noted. Basilar artery with minimal narrowing deforming the left posterior cerebral artery with main contribution from the left posterior communicating artery. No mass effect. Right posterior communicating artery becomes the right posterior cerebral artery. No aneurysm, no mass effect, and no vasculitis. IMPRESSION: 1. Noncritical stenosis/narrowing of the bilateral proximal ICAs. 2. Supraclinoid left ICA bifurcates to form the left MCA and left posterior communicating artery. No A1 segment of the left MEHDAT which could be congenital or severe narrowing or stenosis. A2 segment of the left MEDHAT supplied by anterior communicating artery from the right A1 segment. 3. Right posterior communicating artery becomes the right posterior cerebral artery. Possible narrowing/stenosis of the distal basilar artery contribution to the left posterior cerebral artery, or rudimentary vessel. Right Post cerebral a., supplied mainly by the left posterior communicating artery. 4. No evidence of aneurysm, vasculitis, or mass effect. Electronically signed by: Jose Luis Silva MD 11/01/2019 4:36 PM CDT
== END ==
LOC: MRI 07:58
PROVIDERS: ATTEND Nurse Practitioner Family
DX: G45.0 Vertebro-basilar artery syndrome (principal); I77.9 Disorder of arteries and arterioles, unspecified